=== PATIENT | male | born 1975 | race Caucasian/White ===

== ENCOUNTER 2016-08-11 17:57 | Emergency (ER) | payer OTHER ==
[~2016-08-11] VITALS: Ht 177.8 cm; Wt 80.7 kg
[2016-08-11 18:05] VITALS: BP 98/69
--- NOTE | 2016-08-11 21:02 | NUR ---
PT TAKEN TO BED 5
--- NOTE | 2016-08-11 21:07 | NUR ---
PATIENT PRESENTS TO ED WITH LT FOOT PAIN . PT STATES HIS FOOT FELL SKILLED NURSING OFF 4X4 . DENIES N/V/D; SKIN IS PINK/WARM/DRY; AAOX4 WITH EVEN AND STEADY GAIT; LUNGS CLEAR BL; HR EVEN AND REGULAR; PT DENIES ANY FEVER, CP, SOB, OR COUGH AT THIS TIME; PATIENT STATES PAIN OF 1/10 AT THIS TIME; VSS; PATIENT POSITIONED FOR COMFORT; HOB ELEVATED; BEDRAILS UP X2; BED DOWN. ER MD MADE AWARE OF PT STATUS.
--- NOTE | 2016-08-11 21:15 | NUR ---
Dr. Champion evaluating patient at bedside.
[2016-08-11 21:57] VITALS: BP 130/64
--- NOTE | 2016-08-11 21:57 | NUR ---
Crutches dispensed. Taught proper use, patient returned demo. Patient discharged with v/s stable. Written and verbal after care instructions given and explained. Patient alert, oriented and verbalized understanding of instructions. Ambulatory with CRUTCHES. All questions addressed prior to discharge. ID band removed. Patient advised to follow up with PMD. Rx of MOTRIN given. Patient educated on indication of medication including possible reaction and side effects. Opportunity to ask questions provided and answered.
== END 2016-08-11 21:57 | disposition home or self-care (01) ==
LOC: MED 17:57
DX: S92.355A Nondisplaced fracture of fifth metatarsal bone, left foot, initial encounter for closed fracture (principal); W01.0XXA Fall on same level from slipping, tripping and stumbling without subsequent striking against object, initial encounter; Y93.89 Activity, other specified; Y92.89 Other specified places as the place of occurrence of the external cause; Y99.8 Other external cause status; F17.210 Nicotine dependence, cigarettes, uncomplicated